=== PATIENT | male | born 1990 | race Asian ===

== ENCOUNTER 2016-11-14 05:04 | Emergency (ER) | payer BC ==
[~2016-11-14] VITALS: Ht 172.7 cm; Wt 84.0 kg
[2016-11-14] MEDS ORDERED: SODIUM CHLORIDE 0.9% 1,000 ML IV SCH (05:12)
[2016-11-14] MEDS ORDERED: HYDROXYZINE 50 MG/ML IM ONE (05:15)
[2016-11-14] MEDS ORDERED: FAMOTIDINE 20MG/2ML VIAL IV ONE (05:15)
[2016-11-14] MEDS ORDERED: METHYLPREDNISOLONE SOD SUCC 125 MG/2 ML VIAL IV ONE (05:15)
[2016-11-14] MEDS ORDERED: ACETAMINOPHEN 325MG TABLET PO ONE ×2 (05:30→07:15)
[2016-11-14] MEDS: HYDROXYZINE PAMOATE 50 MG PO NR ×2 (05:43→06:49)
[2016-11-14 05:48] LABS: HEMATOCRIT. 43.2 % (42.0-52.0); MEAN CORPUSCULAR HEMOGLOBIN 30.7 pg (28.0-32.0); MEAN CORPUSCULAR VOLUME 88.5 fL (80.0-94.0); MEAN PLATELET VOLUME 8.8 fl (7.4-10.4); PLATELET 139 x1000/uL (130-400); RED BLOOD CELL COUNT 4.88 mill/uL (4.7-6.1); RED CELL DISTRIBUTION WIDTH 12.5 % (11.6-14.6)
[2016-11-14] MEDS ORDERED: SODIUM CHLORIDE 0.9% 1,000 ML IV ONE ×2 (06:30→07:00)
[2016-11-14 06:40] LABS: CARBON DIOXIDE 26 mEq/L (21-32); CHLORIDE 105 mEq/L (98-107)
[2016-11-14 07:20] LABS: PLATELET ESTIMATE NORMAL
[2016-11-14 09:17] VITALS: BP 128/81
[2016-11-15] MEDS ORDERED: SODIUM CHLORIDE 0.9% 1,000 ML IV SCH (11:19)
[2016-11-15] MEDS ORDERED: HYDROCODONE/ACETAMINOPHEN 5/325MG TABLET PO PRN (11:30)
[2016-11-15] MEDS ORDERED: IPRATROPIUM/ALBUTEROL 0.5-3(2.5)MG/3ML NEB INH PRN (11:30)
[2016-11-15] MEDS ORDERED: ACETAMINOPHEN 325MG TABLET PO PRN (11:30)
[2016-11-15] MEDS ORDERED: DIPHENHYDRAMINE 25MG CAPSULE PO SCH (11:30)
[2016-11-15] MEDS ORDERED: VANCOMYCIN 1 G PREMIX 200 ML IV SCH (11:30)
[2016-11-15] MEDS ORDERED: GUAIFENESIN 200MG/10ML SUGAR FREE UDC PO PRN (11:30)
[2016-11-15] MEDS ORDERED: CEFTRIAXONE 1 G PREMIX 50 ML IV SCH (11:30)
[2016-11-15] MEDS ORDERED: MAGNESIUM/ALUMINUM HYDROXIDE/SIMETHICONE 30ML UDC PO PRN (11:30)
[2016-11-15] MEDS ORDERED: ONDANSETRON HCL 4MG/2ML VIAL IV PRN (11:30)
[2016-11-15] MEDS ORDERED: DOCUSATE SODIUM 100MG CAPSULE PO PRN (11:30)
[2016-11-15] MEDS ORDERED: POTASSIUM CHLORIDE 20MEQ TABLET SR PO ONE (11:45)
[2016-11-15] MEDS ORDERED: DEXAMETHASONE 10MG/ML 1ML VIAL IV SCH (12:00)
[2016-11-15] MEDS ORDERED: TRIA15OI8 TP (14:18)
[2016-11-15] MEDS ORDERED: FAMOTIDINE 20MG TABLET PO SCH (21:00)
[2016-11-16 10:11] LABS: BASOPHILS % 0.2 % (0.0-2.0); HEMATOCRIT. 40.4 % (42.0-52.0); HEMOGLOBIN. 13.9 g/dL (14.0-18.0); LYMPHOCYTES % 11.4 % (20.0-50.0); MEAN CORPUSCULAR HEMOGLOBIN 30.5 pg (28.0-32.0); MEAN CORPUSCULAR VOLUME 88.7 fL (80.0-94.0); NEUTROPHILS % 80.4 % (40.0-76.0); PLATELET 152 x1000/uL (130-400); RED BLOOD CELL COUNT 4.55 mill/uL (4.7-6.1); RED CELL DISTRIBUTION WIDTH 12.8 % (11.6-14.6)
[2016-11-16 10:12] LABS: CARBON DIOXIDE 26 mEq/L (21-32); CHLORIDE 107 mEq/L (98-107)
== END 2016-11-14 09:19 | disposition home or self-care (01) ==
LOC: ER 05:16
DX: R65.10 Systemic inflammatory response syndrome (SIRS) of non-infectious origin without acute organ dysfunction (principal); T78.40XA Allergy, unspecified, initial encounter; L03.116 Cellulitis of left lower limb; Z88.0 Allergy status to penicillin
CPT/HCPCS: 36415; 80053; 83605; 85025; 87040; 96361; 96374; 96375; 99285; J2930; J3490; J7040; Z7610; J3410; J7030; Q0177

== ENCOUNTER 2016-11-15 07:08 | Inpatient (IN) | payer BC ==
[~2016-11-15] VITALS: Ht 172.7 cm; Wt 82.3 kg
[2016-11-15] MEDS ORDERED: SODIUM CHLORIDE 0.9% 1,000 ML IV ONE (07:21)
[2016-11-15] MEDS ORDERED: ACETAMINOPHEN 325MG TABLET PO ONE (07:45)
[2016-11-15] MEDS ORDERED: SODIUM CHLORIDE 0.9% 1000ML BAG (SEPSIS BOLUS) IV ONE (07:45)
[2016-11-15 07:58] LABS: HEMATOCRIT. 50.5 % (42.0-52.0); HEMOGLOBIN. 17.4 g/dL (14.0-18.0); MEAN CORPUSCULAR HEMOGLOBIN 30.7 pg (28.0-32.0); MEAN CORPUSCULAR VOLUME 88.7 fL (80.0-94.0); MEAN PLATELET VOLUME 8.9 fl (7.4-10.4); PLATELET 155 x1000/uL (130-400); RED BLOOD CELL COUNT 5.69 mill/uL (4.7-6.1)
[2016-11-15 08:11] LABS: INR 1.1; PARTIAL THROMBOPLASTIN TIME 28.6 sec (24.0-34.0); PROTHROMBIN TIME 11.7 sec
[2016-11-15] MEDS ORDERED: CEFTRIAXONE 2 G PREMIX 50 ML IV ONE (08:15)
[2016-11-15] MEDS ORDERED: VANCOMYCIN 1 G PREMIX 200 ML IV ONE (08:15)
[2016-11-15] MEDS ORDERED: DEXAMETHASONE INJ 10 MG in SODIUM CHLORIDE 0.9% 50 ML IV ONE (08:15)
[2016-11-15 08:16] LABS: CARBON DIOXIDE 24 mEq/L (21-32); CHLORIDE 102 mEq/L (98-107); TROPONIN I < 0.02 ng/mL (0.00-0.04)
[2016-11-15 08:19] LABS: PLATELET ESTIMATE NORMAL
[2016-11-15] MEDS ORDERED: DEXAMETHASONE 10MG/ML 1ML VIAL IV SCH ×2 (08:30→12:30)
[2016-11-15 09:04] LABS: MONOTEST NEGATIVE (NEGATIVE)
[2016-11-15] MEDS ORDERED: SODIUM BICARBONATE 4% (2.4MEQ) 5ML VIAL IV ONE (10:18)
[2016-11-15] MEDS ORDERED: LIDOCAINE HCL 1% 20ML VIAL (Pyxis) INJ ONE (10:18)
[2016-11-15 12:05] LABS: GLUCOSE CSF 65 mg/dL (41-75)
[2016-11-15 12:06] LABS: CLARITY URINE CLEAR (CLEAR); COLOR URINE YELLOW (YELLOW); GLUCOSE URINE NEGATIVE (NEGATIVE); KETONES URINE TRACE (NEGATIVE); LEUKOCYTE ESTERASE URINE NEGATIVE (NEGATIVE); NITRITE URINE NEGATIVE (NEGATIVE); OCCULT BLOOD URINE NEGATIVE (NEGATIVE); PH URINE 5.5 (4.5-8.0); PROTEIN URINE NEGATIVE (NEGATIVE); SPECIFIC GRAVITY URINE 1.013 (1.005-1.030); UROBILINOGEN URINE 0.2 E.U./dL (0.2-1.0)
[2016-11-15] MEDS ORDERED: MAGNESIUM/ALUMINUM HYDROXIDE/SIMETHICONE 30ML UDC PO PRN (12:30)
[2016-11-15] MEDS ORDERED: IPRATROPIUM/ALBUTEROL 0.5-3(2.5)MG/3ML NEB INH PRN (12:30)
[2016-11-15] MEDS ORDERED: ACETAMINOPHEN 325MG TABLET PO PRN (12:30)
[2016-11-15] MEDS ORDERED: GUAIFENESIN 200MG/10ML SUGAR FREE UDC PO PRN (12:30)
[2016-11-15] MEDS ORDERED: DIPHENHYDRAMINE 50MG/ML VIAL IV PRN (12:30)
[2016-11-15] MEDS ORDERED: ONDANSETRON HCL 4MG/2ML VIAL IV PRN (12:30)
[2016-11-15] MEDS ORDERED: VANCOMYCIN 1 G PREMIX 200 ML IV SCH (12:30)
[2016-11-15] MEDS ORDERED: HYDROCODONE/ACETAMINOPHEN 5/325MG TABLET PO PRN (12:30)
[2016-11-15] MEDS ORDERED: TRIA15OI8 TP (14:18)
[2016-11-15 14:33] VITALS: BP 103/69
[2016-11-15 14:42] LABS: HEPATITIS B SURFACE ANTIGEN NEGATIVE
[2016-11-15 14:44] VITALS: BP 103/69
[2016-11-15 15:10] LABS: HEPATITIS B CORE AB IGM NEGATIVE
[2016-11-15 15:12] LABS: HEPATITIS A AB IGM NEGATIVE (NEGATIVE)
[2016-11-15] MEDS: SODIUM CHLORIDE 0.9% 1,000 ML IV SCH (16:40)
[2016-11-15] MEDS: AZTREONAM 1 G in DEXTROSE 5% WATER 50 ML IV SCH ×2 (16:40→23:37)
[2016-11-15] MEDS: FAMOTIDINE 20MG/2ML VIAL IV SCH (16:57)
[2016-11-15] MEDS: VANCOMYCIN 1 G PREMIX 200 ML IV SCH (17:58)
[2016-11-15] MEDS: DIPHENHYDRAMINE 50MG/ML VIAL IV SCH ×2 (17:59→23:37)
[2016-11-15 18:00] VITALS: BP 128/64
[2016-11-15 20:00] VITALS: BP 119/70
[2016-11-15 22:14] VITALS: BP 118/67
[2016-11-16] VITALS (12 sets, daily range): BP systolic 111–133; BP diastolic 57–86
[2016-11-16] MEDS: SODIUM CHLORIDE 0.9% 1,000 ML IV SCH ×3 (00:30→21:08)
[2016-11-16] MEDS: VANCOMYCIN 1 G PREMIX 200 ML IV SCH ×2 (04:06→17:08)
[2016-11-16] MEDS: DIPHENHYDRAMINE 50MG/ML VIAL IV SCH ×4 (06:20→23:24)
[2016-11-16] MEDS: FAMOTIDINE 20MG/2ML VIAL IV SCH (08:53)
[2016-11-16] MEDS: AZTREONAM 1 G in DEXTROSE 5% WATER 50 ML IV SCH ×3 (10:07→23:24)
[2016-11-16] MEDS: METHYLPREDNISOLONE SOD SUCC 40 MG/ML VIAL IV SCH ×2 (10:08→17:08)
[2016-11-16] MEDS ORDERED: DIPHENHYDRAMINE 50MG/ML VIAL IV NR (13:00)
[2016-11-17] VITALS (7 sets, daily range): BP systolic 105–122; BP diastolic 52–80
[2016-11-17] MEDS: METHYLPREDNISOLONE SOD SUCC 40 MG/ML VIAL IV SCH ×2 (01:24→09:00)
[2016-11-17 04:11] LABS: BASOPHILS % 0.2 % (0.0-2.0); LYMPHOCYTES % 12.7 % (20.0-50.0); MEAN CORPUSCULAR HEMOGLOBIN 30.4 pg (28.0-32.0); MEAN PLATELET VOLUME 8.8 fl (7.4-10.4); MONOCYTES % 4.2 % (2.0-8.0); NEUTROPHILS % 80.9 % (40.0-76.0); PLATELET 150 x1000/uL (130-400); RED BLOOD CELL COUNT 4.27 mill/uL (4.7-6.1); RED CELL DISTRIBUTION WIDTH 12.9 % (11.6-14.6)
[2016-11-17 04:30] LABS: CARBON DIOXIDE 27 mEq/L (21-32); CHLORIDE 108 mEq/L (98-107); VANCOMYCIN TROUGH 5.6 ug/mL (5.0-10.0)
[2016-11-17] MEDS: VANCOMYCIN 1 G PREMIX 200 ML IV SCH (05:28)
[2016-11-17] MEDS: DIPHENHYDRAMINE 50MG/ML VIAL IV SCH ×2 (05:28→11:43)
[2016-11-17] MEDS: SODIUM CHLORIDE 0.9% 1,000 ML IV SCH (07:34)
[2016-11-17] MEDS: AZTREONAM 1 G in DEXTROSE 5% WATER 50 ML IV SCH (08:00)
[2016-11-17] MEDS: FAMOTIDINE 20MG/2ML VIAL IV SCH (08:00)
[2016-11-17] MEDS ORDERED: VANCOMYCIN 2,000 MG in DEXT 5% WATER 500 ML IV SCH (12:00)
[2016-11-17 13:07] LABS: EBV NUCLEAR IGG 90.3 U/mL (0.0-17.9); EBV VIRAL CAPSID AB IGM <36.0 U/mL (0.0-35.9)
== END 2016-11-17 13:10 | disposition home or self-care (01) | DRG 607 ==
LOC: ER 07:08 → 3WST 09:32 → CANRESERV 10:30 → ENRESERV 10:30 → EDBEDREQ 10:41 → ENRESERV 10:47 → UNDODISIN 13:15
PROVIDERS: ADMIT Internal Medicine; ATTEND Internal Medicine
PROC: 009U3ZX Drainage of Spinal Canal, Percutaneous Approach, Diagnostic (ICD-10-PCS; principal; 2016-11-15)
PROC: B01B1ZZ Fluoroscopy of Spinal Cord using Low Osmolar Contrast (ICD-10-PCS; 2016-11-15)
DX: L50.9 Urticaria, unspecified (principal); L03.116 Cellulitis of left lower limb; R65.10 Systemic inflammatory response syndrome (SIRS) of non-infectious origin without acute organ dysfunction; E87.1 Hypo-osmolality and hyponatremia; Z82.49 Family history of ischemic heart disease and other diseases of the circulatory system; Z88.0 Allergy status to penicillin; Z88.2 Allergy status to sulfonamides; Z88.1 Allergy status to other antibiotic agents; Z83.511 Family history of glaucoma; Z83.49 Family history of other endocrine, nutritional and metabolic diseases
CPT/HCPCS: 36415; 62270; 70450; 71010; 73562; 76700; 77003; 80048; 80053; 80076; 80202; 81003; 82945; 83605; 83690; 83880; 84145; 84157; 84484; 85025; 85610; 85651; 85730; 86140; 86308; 86644; 86645; 86664; 86665; 86705; 86709; 86803; 87040; 87070; 87086; 87186; 87205; 87340; 87804; 89050; 93005; 96361; 96365; 96366; 96368; 96375; 99285; J0696; J1100; J1200; J2920; J3370; J3490; J7030; J7040; J7060